=== PATIENT | female | born 2000 | race Caucasian/White ===

== ENCOUNTER 2021-02-28 15:00 | Emergency (ER) | payer OTHER ==
[2021-02-28 16:33] LABS: BUN/CREATININE RATIO 15 (0-10)
[2021-02-28 17:12] LABS: HEMOGLOBIN 13.9 gm/dl (12.3-15.3); RED BLOOD COUNT 4.88 M/UL (4.00-5.10); WHITE BLOOD COUNT 7.6 K/UL (4.5-11.0)
[2021-02-28] MEDS ORDERED: PHENERGAN 25 MG25 M1 PO (17:27)
[2021-02-28] MEDS ORDERED: PHENERGAN 50 MG50 MG PR (17:27)
== END 2021-02-28 17:40 | disposition home or self-care (01) ==
LOC: ER1 15:00
PROVIDERS: Family Medicine
DX: O21.9 Vomiting of pregnancy, unspecified (principal); O99.281 Endocrine, nutritional and metabolic diseases complicating pregnancy, first trimester; E86.0 Dehydration; O99.331 Smoking (tobacco) complicating pregnancy, first trimester; F17.290 Nicotine dependence, other tobacco product, uncomplicated
CPT/HCPCS: 80053; 81001; 84702; 85025; 96374; 99284; J2550